=== PATIENT | male | born 2000 | race Asian ===

== ENCOUNTER 2018-07-18 08:31 | Emergency (ER) | payer OTHER ==
[~2018-07-18] VITALS: Ht 172.7 cm; Wt 70.0 kg
--- NOTE | 2018-07-18 08:45 | NUR ---
PT. IS A & O X 4 WITH C/O HAVING AN ALLERGIC REACTION TO PESTO AFTER EATING IT. PT. STATES HE DID NOT KNOW THAT IS HAD NUTS IN IT AND DEVELOPED HIVES AFTER EATING IT. PT. WENT TO URGENT CARE AND WAS TREATED THERE THEN TRANSPORTED TO THE ER FOR FURTHER EVALUATION. PT.'S HIVES ARE RESOLVING. LUNGS ARE CTA. MM ARE PINK AND MOIST WITH PULSES +2 THROUGHOUT. PT. HAS THE CP MONITOR IN PLACE. VSS. SATS ARE 98% ON ROOM AIR WITH RESP EUPNEIC. PT. HAS NO TONGUE OR LIP SWELLING PRESENT AT THIS TIME.
[2018-07-18] MEDS ORDERED: methylPREDNISolone SOD SUCC 125 MG/2 ML ONE (08:50)
[2018-07-18] MEDS ORDERED: FAMOTIDINE 20 MG/2 ML ONE (08:50)
[2018-07-18] MEDS ORDERED: methylPREDNISolone SOD SUCC 125 MG/2 ML IVPush ONE (09:00)
[2018-07-18] MEDS ORDERED: PLEASE ENTER HEIGHT AND WEIGHT MC SCH (09:00)
[2018-07-18] MEDS ORDERED: FAMOTIDINE 20 MG/2 ML IVPush ONE (09:00)
[2018-07-18] MEDS ORDERED: PLEASE ENTER ALLERGIES MC SCH (09:00)
--- NOTE | 2018-07-18 09:56 | NUR ---
PT. WAS GIVEN DISCHARGE INSTRUCTIONS AND SCRIPTS WITH UNDERSTANDING VERBALIZED ALONG WITH WILLINGNESS TO COMPLY. PT.'S IV WAS DCD',CATH TIP INTACT. PRESSURE HELD WITH HEMOSTASIS ACHIEVED. PT. WAS AMBULATORY TO THE DISCHARGE DESK. VSS. RESP. EUPNEIC.
[2018-07-18 10:22] VITALS: BP 113/68
== END 2018-07-18 10:24 | disposition home or self-care (01) ==
LOC: ED 10:00
DX: T78.05XA Anaphylactic reaction due to tree nuts and seeds, initial encounter (principal); Y92.9 Unspecified place or not applicable
CPT/HCPCS: 96374; 96375; 99283; J2930; J3490